=== PATIENT | male | born 1980 | race Caucasian/White ===

== ENCOUNTER 2017-06-13 04:54 | Emergency (ER) | payer OTHER ==
[2017-06-13 05:11] VITALS: TEMP 98.4
[2017-06-13] MEDS ORDERED: LIDOCAINE IV STA (05:34)
[2017-06-13] MEDS ORDERED: SODIUM CHLORIDE 0.9% IV STA (05:34)
--- NOTE | 2017-06-13 05:50 | ED PDOC ---
HPI: Male Pain Additional Complaint(s): 37 YO M with PMH of "overactive bladder" presents to the ER with sudden onset of right flank pain radiating to the suprapubic region at 3 in the morning, which was followed by an episode of non bloody non bilious vomiting. Admits to drinking today, states he had 4 drinks of hard alcohol today before the episodes began. States he had a similar episode two years ago. He was seen by urology who had given him options for putting a pacemaker for his regulation of his urine. PMH: Overactive bladder, Kidney stone PSH: Left foot surgery Allergy: None Family history: None <Anthony Rod - Last Filed: 06/13/17 06:45> <Wes Enciso - Last Filed: 06/16/17 20:58> Chief Complaint (Nursing): Male Genitourinary Supervising Attending Note - Attestation: I have personally seen and examined this patient.: Yes I have fully participated in the care of the patient.: Yes I have reviewed all pertinent clinical information, including history, physical exam and plan: Yes - Notes: Notes:: Patient with history of overactive bladder in the past presents with flank pain and urinary retention, likley indicative of stone, passed chaidez to eval for urine output, which was not much upon insertion. Will endorse case to Dr. Servin pending completion of workup and re-eval. <Wes Enciso - Last Filed: 06/16/17 20:58> Past Medical History Vital Signs: Last Vital Signs Temp 98.4 F 06/13/17 05:04 Pulse 90 06/13/17 05:04 Resp 18 06/13/17 05:04 BP 138/91 H 06/13/17 05:04 Pulse Ox 100 06/13/17 05:04 - Medical History PMH: No Chronic Diseases, Kidney Stones - Surgical History Surgical History: No Surg Hx - Family History Family History: States: No Known Family Hx - Living Arrangements Living Arrangements: With Family - Social History Current smoker - smoking cessation education provided: No <Anthony Rod - Last Filed: 06/13/17 06:45> Vital Signs: Last Vital Signs Temp 98.4 F 06/13/17 11:08 Pulse 92 H 06/13/17 11:08 Resp 19 06/13/17 11:08 BP 126/78 06/13/17 11:08 Pulse Ox 98 06/13/17 11:08 <Wes Enciso - Last Filed: 06/16/17 20:58> - Home Medications Home Medications: Ambulatory Orders Medication Instructions Recorded Cefuroxime Axetil [Cefuroxime] 500 mg PO BID 7 Days tablet 06/13/17 Ibuprofen [Motrin] 600 mg PO TID 7 Days tab 06/13/17 Tamsulosin [Flomax] 0.4 mg PO DAILY PRN #6 cap 06/13/17 - Allergies Allergies/Adverse Reactions: Allergies Allergy/AdvReac Type Severity Reaction Status Date / Time No Known Allergies Allergy Verified 06/13/17 05:04 Review of Systems ROS Statement: Except As Marked, All Systems Reviewed And Found Negative <Anthony Rod - Last Filed: 06/13/17 06:45> Physical Exam - Physical Exam Appears: Positive for: No Acute Distress Head Exam: Positive for: NORMAL INSPECTION Skin: Positive for: Normal Color ENT: Positive for: Normal ENT Inspection Cardiovascular/Chest: Positive for: Regular Rate, Rhythm Respiratory: Positive for: Normal Breath Sounds. 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 <Anthony Rod - Last Filed: 06/13/17 06:45> - Laboratory Results Result Diagrams: 06/13/17 06:15 06/13/17 06:15 - ECG O2 Sat by Pulse Oximetry: 100 <Anthony Rod - Last Filed: 06/13/17 06:45> - Laboratory Results Result Diagrams: 06/13/17 06:15 06/13/17 06:15 <Wes Enciso - Last Filed: 06/16/17 20:58> Medical Decision Making Medical Decision Making: Toradol 30 ICP Straight Cath Abd & pelvis CT CBC Lipase U/A <Anthony Rod - Last Filed: 06/13/17 06:45> Disposition - Patient ED Disposition Is Patient to be Admitted: No - Disposition Disposition: Transfer of Care Disposition Time: 06:44 Patient Signed Over To: Wes Enciso Present On Arrival: None <Anthony Rod - Last Filed: 06/13/17 06:45> - Disposition Disposition: Transfer of Care Disposition Time: 07:00 Patient Signed Over To: Sumeet Servin Handoff Comments: pending completion of workup, re-eval <Wes Enciso - Last Filed: 06/16/17 20:58> - Clinical Impression Clinical Impression: Urinary retention, Kidney stone - Disposition Referrals: Micah Husain MD [Staff Provider] - 06/14/17 Condition: STABLE Additional Instructions: Return if not better in 3 days. See the urologist tomorrow without fail. Prescriptions: Cefuroxime Axetil [Cefuroxime] 500 mg PO BID 7 Days tablet Ibuprofen [Motrin] 600 mg PO TID 7 Days tab Tamsulosin [Flomax] 0.4 mg PO DAILY PRN #6 cap PRN Reason: Pain Instructions: Kidney Stones in Adults, Chaidez Catheter, Male, Urinary Retention (DC) Forms: [facility] (Lithuanian), [facility] ED School/Work Excuse
[2017-06-13] MEDS ORDERED: Sodium Chloride 0.9% 1,000 ML IV STA (06:06)
[2017-06-13 06:26] LABS: BASO % 0.5 % (0.0-2.0); EOS # 0.1 K/uL (0.0-0.7); HEMOGLOBIN 14.8 g/dL (12.0-18.0); LYMPH % 35.1 % (20.0-40.0); MEAN CELL VOLUME 85.3 fl (80.0-94.0); MEAN CORPUSCULAR HEMOGLOBIN 28.5 pg (27.0-31.0); MEAN CORPUSCULAR HGB CONC 33.5 g/dL (33.0-37.0); MEAN PLATELET VOLUME 9.1 fl (7.2-11.7); MONO # 0.9 K/uL (0.0-0.8); MONO % 10.7 % (0.0-10.0); NEUT # 4.5 K/uL (1.8-7.0); NEUT % 52.7 % (50.0-75.0); NRBC % 0.1 % (0.0-0.0); RBC 5.19 Mil/uL (4.40-5.90); RED CELL DISTRIBUTION WIDTH 13.7 % (11.5-14.5); WHITE BLOOD COUNT 8.6 K/uL (4.8-10.8)
[2017-06-13 06:34] LABS: ALB/GLOB RATIO 1.5 (1.0-2.1); ALBUMIN 4.6 g/dL (3.5-5.0); ALT/SGPT 35 U/L (21-72); AST/SGOT 29 U/L (17-59); BLOOD UREA NITROGEN 12 mg/dl (9-20); CALCIUM 9.3 mg/dL (8.4-10.2); GFR AFRICAN-AMERICAN > 60; GFR NON-AFRICAN AMERICAN > 60; LIPASE 126 U/L (23-300)
[2017-06-13 06:36] LABS: SQUAMOUS EPITHIAL 1 /hpf (0-5); URINE BILIRUBIN NEGATIVE (NEGATIVE); URINE BLOOD SMALL (NEGATIVE); URINE CLARITY SLIGHTY-CLOUDY (Clear); URINE COLOR YELLOW (YELLOW); URINE GLUCOSE (UA) NEG (Normal); URINE LEUKOCYTE ESTERASE NEG Leu/uL (Negative); URINE PROTEIN 30 mg/dL (NEGATIVE); URINE UROBILINOGEN 0.2-1.0 mg/dL (0.2-1.0)
--- NOTE | 2017-06-13 08:59 | CT ---
PROCEDURE: CT Abdomen and Pelvis without intravenous contrast HISTORY: urinary retention, right-sided abdominal pain COMPARISON: None. TECHNIQUE: CT scan of the abdomen and pelvis was performed without administration of intravenous contrast. Oral contrast was not administered. Coronal and sagittal reformatted images were obtained. Radiation dose: Total exam DLP = Total exam DLP = 700.22 mGy-cm. This CT exam was performed using one or more of the following dose reduction techniques: Automated exposure control, adjustment of the mA and/or kV according to patient size, and/or use of iterative reconstruction technique. FINDINGS: LOWER THORAX: The visualized lungs are clear. LIVER: Normal in size. No gross lesion or ductal dilatation. GALLBLADDER AND BILE DUCTS: No calcified gallstones. PANCREAS: Normal in size without calcifications. No gross lesion or ductal dilatation. SPLEEN: Normal in size and appearance. ADRENALS: No discrete nodule. KIDNEYS AND URETERS: There is edema and enlargement of the right kidney, perinephric fat stranding, mild right hydronephrosis and mild diffuse dilatation of the right ureteral. There is a 3 mm stone at the right UV junction. The left kidney is normal in size. There is a punctate nonobstructing stone in the upper pole. No hydronephrosis. VASCULATURE: No aortic aneurysm. BOWEL: The small bowel loops are normal in caliber. The colon is decompressed. No bowel dilatation or obstruction. APPENDIX: Normal appendix. PERITONEUM: No free fluid. No free air. LYMPH NODES: No enlarged lymph nodes. BLADDER: Decompressed. REPRODUCTIVE: Unremarkable. BONES: No acute fracture. Within normal limits for the patient's age. OTHER FINDINGS: None. IMPRESSION: 1. Findings are most compatible with mild right obstructive uropathy with 3 mm stone at the right UV junction. 2. Punctate nonobstructing stone in the upper pole of the left kidney. No hydronephrosis.
--- NOTE | 2017-06-13 09:03 | ED PDOC ---
- Laboratory Results Result Diagrams: 06/13/17 06:15 06/13/17 06:15 Interpretation Of Abn Labs: urine wbc - ECG O2 Sat by Pulse Oximetry: 99 Pulse Ox Interpretation: Normal - CT Scan/US ct Other Rad Studies (CT/US): Read By Radiologist Other Rad Interpretation: R UVJ 3mm stone and R obstructive uropathy - Progress ED Course And Treament: 700: Took over care from Dr. Enciso. Fu on ct. Pt. had chaidez put in for urinary retention. 926: Spoke with Dr. Husain. Made aware of findings, presentation. Wants pt. to be dc on flomax, motrin, chaidez, ceftin 500mg bid. Fu with him Wednesday. He will remove chaidez. Give rocephin in ED. Pt. stable. AAOx3. Understands plan. Disposition - Clinical Impression Clinical Impression: Urinary retention, Kidney stone - POA Present On Arrival: None - Disposition Referrals: Micah Husain MD [Staff Provider] - 06/14/17 Disposition: Routine/Home Disposition Time: 09:28 Condition: STABLE Additional Instructions: Return if not better in 3 days. See the urologist tomorrow without fail. Prescriptions: Cefuroxime Axetil [Cefuroxime] 500 mg PO BID 7 Days tablet Ibuprofen [Motrin] 600 mg PO TID 7 Days tab Tamsulosin [Flomax] 0.4 mg PO DAILY PRN #6 cap PRN Reason: Pain Instructions: Kidney Stones in Adults, Chaidez Catheter, Male, Urinary Retention (DC) Forms: [employer] (Armenian), [facility] ED School/Work Excuse
[2017-06-13] MEDS ORDERED: cefTRIAXone (Rocephin) 1 gm Inj IV ONE (09:30)
[2017-06-13 11:09] VITALS: BP 126/78; PULSE 92; RESP 19; O2SAT 98
== END 2017-06-13 11:30 | disposition home or self-care (01) ==
LOC: H.ER 04:54
DX: N20.0 Calculus of kidney (principal); N32.81 Overactive bladder; Z95.0 Presence of cardiac pacemaker
CPT/HCPCS: 74176; 80053; 81003; 83690; 85025; 87086; 96361; 96365; 96375; 99285; J0696; J1885; J2001; J7040